=== PATIENT | female | born 1995 | race Caucasian/White ===

== ENCOUNTER 2018-12-09 11:35 | Emergency (ER) | payer OTHER ==
[~2018-12-09] VITALS: Ht 170.2 cm; Wt 65.5 kg
[2018-12-09 11:36] VITALS: Ht 170.2 cm; Wt 65.5 kg
== END 2018-12-09 13:00 | disposition home or self-care (01) ==
LOC: ED 11:35
DX: S63.501A Unspecified sprain of right wrist, initial encounter (principal); J45.909 Unspecified asthma, uncomplicated; Z98.890 Other specified postprocedural states; V00.131A Fall from skateboard, initial encounter; Y93.51 Activity, roller skating (inline) and skateboarding; Y92.89 Other specified places as the place of occurrence of the external cause; Y99.8 Other external cause status
CPT/HCPCS: A4570

== ENCOUNTER 2018-12-11 22:44 | Emergency (ER) | payer OTHER ==
[~2018-12-11] VITALS: Ht 167.6 cm; Wt 66.7 kg
[2018-12-11 22:51] VITALS: Ht 167.6 cm; Wt 66.7 kg
[2018-12-11 23:38] VITALS: BP 111/63
== END 2018-12-11 23:38 | disposition home or self-care (01) ==
LOC: ED 22:44
DX: S66.911A Strain of unspecified muscle, fascia and tendon at wrist and hand level, right hand, initial encounter (principal); J45.909 Unspecified asthma, uncomplicated; Z88.8 Allergy status to other drugs, medicaments and biological substances; V00.131A Fall from skateboard, initial encounter; Y93.51 Activity, roller skating (inline) and skateboarding; Y92.89 Other specified places as the place of occurrence of the external cause; Y99.8 Other external cause status